=== PATIENT | female | born 1980 | race African-American/Black ===

== ENCOUNTER 2018-07-29 12:23 | Emergency (ER) | payer OTHER ==
[~2018-07-29] VITALS: Ht 170.2 cm; Wt 62.8 kg
[2018-07-29 12:36] VITALS: BP 120/68; Ht 170.2 cm; Wt 62.8 kg
== END 2018-07-29 16:54 | disposition left against medical advice (07) ==
LOC: ED 12:23
DX: Z53.21 Procedure and treatment not carried out due to patient leaving prior to being seen by health care provider (principal)